=== PATIENT | female | born 2000 | race Two or more races ===

== ENCOUNTER 2023-12-20 09:58 | Emergency (ER) | payer OTHER ==
[~2023-12-20] VITALS: Ht 154.9 cm; Wt 54.6 kg
[2023-12-20 10:16] VITALS: TEMP 98.4
[2023-12-20 13:06] VITALS: BP 126/77; PULSE 70; RESP 16; O2SAT 100
== END 2023-12-20 13:08 ==
LOC: EMS 09:58
DX: S06.0XAA Concussion with loss of consciousness status unknown, initial encounter (principal); X58.XXXA Exposure to other specified factors, initial encounter; Y93.89 Activity, other specified; Y92.89 Other specified places as the place of occurrence of the external cause; Y99.8 Other external cause status
CPT/HCPCS: 74176; 84703; 99284